=== PATIENT | male | born 1985 | race Caucasian/White ===

== ENCOUNTER 2017-02-09 06:29 | Emergency (ER) | payer SELFPAY ==
[~2017-02-09] VITALS: Ht 175.3 cm; Wt 68.0 kg
[2017-02-09 06:30] VITALS: BP 121/69
--- NOTE | 2017-02-09 06:40 | NUR ---
DENIES ANY SX'S AT THIS TIME. NON DIAPHORETIC. RESP EVEN AND UNLABORED. ON MONITOR.
--- NOTE | 2017-02-09 06:43 | NUR ---
AAO X4. AMBULATED OUT OF BED; TO RESTROOM AND BACK. STATES "I WANNA GO". DR. BELTRAN NOTIFIED AND ACI GIVEN.
== END 2017-02-09 06:45 | disposition home or self-care (01) ==
LOC: ER 06:32
DX: F19.10 Other psychoactive substance abuse, uncomplicated (principal)
CPT/HCPCS: 99283; A4606; Z7610